=== PATIENT | male | born 1940 | race Caucasian/White ===

== ENCOUNTER → 2018-06-15 19:41 | Outpatient (REF) | payer BC, SELFPAY ==
[2018-06-15 20:33] LABS: Add Manual Diff / Slide Review NO; Basophils Absolute Auto 0 /uL (0-100); Basophils Percent Auto 0.9 % (0-2); Eosinophils Absolute Auto 100 /uL (0-450); Eosinophils Percent Auto 2.8 % (2-4); Hematocrit 45.7 % (41-53); Hemoglobin 15.3 g/dL (13.5-17.5); Lymphocytes Absolute Auto 1500 /uL (1100-4500); Mean Corpuscular HGB Conc 33.6 % (30-36); Mean Corpuscular Hemoglobin 29.8 PG (26-34); Mean Corpuscular Volume 88.6 fL (80-100); Monocytes Absolute Auto 400 /uL (0-900); Monocytes Percent Auto 8.5 % (3-14); Neutrophils Absolute Auto 2500 /uL (1500-7000); Neutrophils Percent Auto 55.8 % (50-75); Platelet Count 182 X10^3/uL (150-400); Red Blood Cell Count 5.15 X10^6/uL (4.5-5.9); Red Cell Distribution Width 12.9 % (11.6-14.8); White Blood Cell Count 4.6 X10^3/uL (4.5-11.0)
[2018-06-15 22:07] LABS: Alanine Aminotransferase 34 IU/L (21-72); Albumin Globulin Ratio 1.6 (1.0-2.8); Alkaline Phosphatase 69 U/L (38-126); Aspartate Aminotransferase 23 IU/L (17-59); Bilirubin Total 1.1 mg/dL (0.2-1.3); Blood Urea Nitrogen 18 mg/dL (9-20); Calcium 9.5 mg/dL (8.4-10.2); Carbon Dioxide 27 mmol/L (22-32); Chloride 104 mmol/L (98-107); Cholesterol 136 mg/dL (140-199); Estimated Glomerular Filt Rate 58.9 mL/min (>60); Globulin 2.5 g/dL (1.7-4.1); Glucose 95 mg/dL (80-110); HDL Cholesterol 45 mg/dL (40-60); HEMOLYSIS < 15 (0-50); LDL Cholesterol Calculated 72 mg/dL (<100); Potassium 4.5 mmol/L (3.4-5.1); Sodium 141 mmol/L (137-145); Total Protein 6.5 g/dL (6.3-8.2); Triglycerides 97 mg/dL (35-150)
[2018-06-15 22:35] LABS: Prostate Specific Antigen 1.38 ng/mL (0.10-4.00)
== END ==
LOC: LAB 19:41
PROVIDERS: Visit Provider Family Medicine Geriatric Medicine
DX: D48.5 Neoplasm of uncertain behavior of skin (principal); I10 Essential (primary) hypertension; N40.1 Benign prostatic hyperplasia with lower urinary tract symptoms; E78.5 Hyperlipidemia, unspecified
CPT/HCPCS: 36415; 80053; 80061; 84153; 85025

== ENCOUNTER 2018-11-23 12:36 | Outpatient (CLI) | payer BC, SELFPAY ==
[2018-11-23] VITALS (9 sets, daily range): BP systolic 107–137; BP diastolic 62–84; PULSE 65–76; RESP 16–64; TEMP 36; O2SAT 98–100
--- NOTE | 2018-11-23 13:30 | DI.RAD.S_ITS ---
PROCEDURE: PAIN L/S TRANSFORAMINAL INJECT INDICATIONS: SPINAL STENOSIS FINDINGS: Fluoroscopic spot filming was performed to verify placement of spinal needles at the right L4-5 level(s), as labeled on the films. Appropriate location(s) of the needle tip(s) was confirmed by injection of iodinated contrast. IMPRESSION: Successful needle tip localization for transforaminal epidural steroid injection on the right at L4-5. Dictated by: Clay Pacheco M.D. on 11/23/2018 at 15:32 Approved by: Clay Pacheco M.D. on 11/23/2018 at 15:32
[2018-11-23] MEDS: MIDAZOLAM 5 MG/5 ML VIAL IV (13:57)
[2018-11-23] MEDS: fentaNYL 100 MCG/2 ML INJ 50 MCG IV (13:58)
[2018-11-23] MEDS: BUPIVACAINE 0.25% (PF) VIAL 2 ML INJ (14:06)
[2018-11-23] MEDS: IOPAMIDOL 15 ML VIAL 3 ML INJ (14:06)
[2018-11-23] MEDS: DEXAMETHASONE 10 MG/ML VIAL 20 MG INJ (14:07)
[2018-11-23] MEDS: BETAMETHASONE 30 MG/5 ML MDV 6 MG INJ (14:07)
--- NOTE | 2018-11-23 14:09 | PC.NURSE ---
ASSISTING PT OFF TABLE AND TRANSPORTING TO POST PROC AREA IN STABLE CONDITION
--- NOTE | 2018-11-23 14:14 | P.PCN_ITS ---
Procedures Date/Time Date of procedure: 11/23/18 Time of procedure: 14:14 General Procedure description: PREOP DIAGNOSIS 1. FORMAINAL STENOSIS WITH LE SYMPTOMS POST OP DIAGNOSIS 1. FORMAINAL STENOSIS WITH LE SYMPTOMS PROCEDURES 1. FLUOROSCOPICALLY GUIDED CONTRAST CONTROLLED TRANSFORAMINAL EPIDURAL STEROID INJECTION - RIGHT L4/5 TFESI PHYSICIAN: Deangelo Epstein DO INDICATIONS: Graham is referred by Drs. Rosales and Benjamin for treatment of Foraminal Stenosis with Right LE Symptoms FINDINGS Foraminal Nerve Root Compression secondary to disc disease and facet hypertrophy DESCRIPTION OF PROCEDURE: Following review of allergy and review of potential side effects and complications, including, but not necessarily limited to, infection, allergic reaction, local tissue breakdown, stroke, temporary or permanent nerve injury, paralysis, and possible , the patient indicated that the patient understood and agreed to proceed. An informed consent document was signed by the patient, witnessed by a nurse, and placed in the patient's chart. Additionally, other treatment options including medications, modalities, and physical therapy were reviewed with the patient. After review of previous anaesthesic history and IV conscious sedation the patient was deemed safe to proceed with todays procedure with IV conscious sedation as ASA class II designation. Safety time-out was performed to confirm patient ID, procedure to be performed and site of procedure. IV sedation was accomplished with a combination of 2mg of Versed and 50mcg of Fentanyl was administered by the RN after DO order, titrated to patient comfort during the co urse of the procedure while the patient remained responsive to all verbal commands In the prone position following sterile prep and drape of the lumbar region, the Right L4/5 posterior neuroforamen was identified fluoroscopically. The skin was anesthetized via a 25-gauge 1.5-inch needle with 1% lidocaine solution. At this point, a 25-gauge 3.5-inch spinal needle was atraumatically introduced and advanced under fluoroscopic guidance through the posterior Right L4/5 neuroforamen to approximately the anterior aspect of the canal. Depth was confirmed on lateral view. Following negative aspiration, injection of approximately 1.5 cc of Isovue 200 under live fluoroscopy in the AP view confirmed excellent flow along the nerve root, into the epidural space without vascular or intrathecal uptake observed Radiological data, including multiple fluoroscopic views of the lumbosacral spine, reveal a spinal needle at the right L4/5 posterior neuroforamen. Subsequent views show flow of contrast material flowing superiorly and inferiorly along the nerve root confirming epidural flow. Subsequently, a test dose of 1.5 cc of 1% lidocaine solution was administered and patient was observed for two minutes for signs or symptoms of complications, including abdominal pain, shortness of breath, bilateral upper or lower extremity weakness, nausea and vomiting, prior to steroid injection. At this point, a total of 3cc or 20mg of dexamethasone and 6mg of betamethasone was injected without incident. The procedure tolerated the procedure well without signs or symptoms of complications prior to transfer to the recovery area continued monitoring without incident.The patient was then transferred to the recovery area where they were observed for an appropriate time after the injection. The patient reported a VAS score of 7 prior to the procedure and a post- procedure VAS of 0. Total Fluoroscopy Time: 20.9 seconds Total Conscious Sedation Time: 24min POST OP INSTRUCTIONS The patient was provided a Pain Log to continue to record their response to the target-specific procedure prior to follow-up visit with their referring physician. Additionally, specific post-injection care instructions and a contact number to our office were provided if concerns arise regarding possible complications associated with the procedure are suspected. Deangelo Epstein, Complications: none
--- NOTE | 2018-11-23 14:17 | PC.NURSE ---
Returns to recovery area stable @ [id number]
--- NOTE | 2018-11-23 14:50 | PC.NURSE ---
Patient lays on Right side post procedure for [address] schmitt requested pt do this to see if pain persisted.
== END 2018-11-23 14:57 ==
LOC: RAD 12:40
PROVIDERS: PCP Family Medicine Geriatric Medicine; Visit Provider Physical Medicine & Rehabilitation
DX: M48.061 Spinal stenosis, lumbar region without neurogenic claudication (principal); M51.16 Intervertebral disc disorders with radiculopathy, lumbar region
CPT/HCPCS: 64483; 99152; J0702; J1100; J2250; J3010

== ENCOUNTER → 2021-05-21 11:11 | Outpatient (CLI) | payer BC, SELFPAY ==
--- NOTE | 2021-05-21 11:12 | DI.MRI.S_ITS ---
PROCEDURE: MR LUMBAR SPINE WO CON INDICATIONS: LBP with Bilateral LE symptoms TECHNIQUE: Noncontrast sagittal T1 spin echo and T2 fast echo, sagittal STIR, axial T1 and T2 fast spin echo through the lumbar spine. In cases with scoliosis, additional coronal T2 fast spin echo may be performed. COMPARISON: [facility], RG, MRI L-SPINE W/O CONTRAST, 09/18/2018, 12:29. FINDINGS: Image quality: Excellent. Alignment and Curvature: There is normal bony alignment. Bone Marrow: Marrow is of normal overall signal. Schmorl's nodes are noted along the inferior endplates of L3 and L4 .No acute vertebral body compression fractures. Spinal Cord: Conus medullaris terminates at the L1 level. Visualized cord demonstrates normal signal and size. Paraspinous Soft Tissues: No paravertebral masses. Discs: Severe desiccation is present at L4-5, L5-S1, mild to moderate throughout the remainder of the lumbar spine. L1-L2: Mild disc bulge mild disc bulge with small left posterior paracentral protrusion. There is indentation of the anterior thecal sac without spinal stenosis. There is mild narrowing through the left subarticular recess with facet arthropathy. Mild bilateral foraminal narrowing. No interval change. L2-L3: Mild disc bulge with jphf-gw-ijwfcvki spinal stenosis, slightly progressive. Lelf-dr-gdektbqu right and mild left foraminal narrowing slightly progressive on the right. Facet and ligamentum flavum hypertrophy are present. L3-L4: Mild disc bulge with mild spinal stenosis. Pmvi-vq-hqdtnujz bilateral foraminal narrowing, left greater than right, unchanged. Facet and ligamentum flavum hypertrophy are present. Minimal epidural lipomatosis. L4-L5: Mild disc bulge with trace posterior left paracentral protrusion, unchanged. No spinal stenosis. Znll-wu-vavjruxp bilateral foraminal narrowing with moderate bilateral subarticular recess stenosis, unchanged. Facet hypertrophy is present. L5-S1: Mild disc bulge with superimposed posterior central protrusion. Mild indentation of the anterior thecal sac. Mild bilateral foraminal narrowing with subarticular stenosis. No interval change. IMPRESSION: Multilevel degenerative changes, relatively stable compared to prior exam except noting small areas of interval progression at L2-3. Multilevel foraminal narrowing most severe at L2-3 and L3-4 secondary to facet arthropathy. Dictated by: Farnaz Isaac M.D. on 05/21/2021 at 18:38 Approved by: Farnaz Isaac M.D. on 05/21/2021 at 18:45
== END ==
PROVIDERS: PCP Family Medicine; Referring Provider Physical Medicine & Rehabilitation; Visit Provider Physical Medicine & Rehabilitation
DX: M51.26 Other intervertebral disc displacement, lumbar region (principal); M48.062 Spinal stenosis, lumbar region with neurogenic claudication; M47.816 Spondylosis without myelopathy or radiculopathy, lumbar region
CPT/HCPCS: 72148

== ENCOUNTER 2021-08-01 12:38 | Outpatient (CLI) | payer BC, SELFPAY ==
[2021-08-01] VITALS (9 sets, daily range): BP systolic 127–150; BP diastolic 72–79; PULSE 67–73; RESP 13–18; TEMP 36.3; O2SAT 99–100
--- NOTE | 2021-08-01 13:00 | DI.RAD.S_ITS ---
PROCEDURE: PAIN L/S TRANSFORAMINAL INJECT INDICATIONS: spondylosis COMPARISON: [facility], , PAIN L/S TRANSFORAMINAL INJECT, 11/23/2018, 13:36. FINDINGS: Fluoroscopic spot filming was performed to verify placement of spinal needles on the left at the L2-L3 and L4-L5 levels, as labeled on the films. Appropriate location of the needle tips was confirmed by injection of iodinated contrast. IMPRESSION: Intraprocedural examination demonstrating appropriate positions of the needles. Dictated by: Mehdi Arzate M.D. on 08/01/2021 at 13:59 Approved by: Mehdi Arzate M.D. on 08/01/2021 at 13:59
[2021-08-01] MEDS: MIDAZOLAM 2 MG/2 ML VIAL (13:23)
[2021-08-01] MEDS: DEXAMETHASONE 10 MG/ML VIAL 20 MG INJ (13:28)
[2021-08-01] MEDS: IOPAMIDOL 15 ML VIAL 3 ML INJ (13:28)
[2021-08-01] MEDS: BETAMETHASONE 30 MG/5 ML MDV 12 MG INJ (13:28)
[2021-08-01] MEDS: BUPIVACAINE 0.25% (PF) VIAL 2 ML INJ (13:28)
--- NOTE | 2021-08-01 13:48 | PM.PROC.IR.1 ---
Date/Time/Diagnoses Date of procedure: 08/01/21 Time of procedure: 13:48 Pre-procedure diagnosis: 1. FORAMINAL STENOSIS WITH LE SYMPTOMS Post-procedure diagnosis: same Procedure Notes Procedure: 1. FLUOROSCOPICALLY GUIDED CONTRAST CONTROLLED TRANSFORAMINAL EPIDURAL STEROID INJECTION - LEFT L4/5 Indications: Graham is referred by Dr. Poe for treatment of Foraminal Stenosis with Left LE Symptoms Physician: Deangelo Epstein Total Fluoroscopy time (seconds): 39 Total sedation minutes: 22 Complications: none Procedure in detail & Post-procedure care: FINDINGS Foraminal Nerve Root Compression secondary to disc disease and facet hypertrophy DESCRIPTION OF PROCEDURE Following review of allergy and review of potential side effects and complications, including, but not necessarily limited to, infection, allergic reaction, local tissue breakdown, stroke, temporary or permanent nerve injury, paralysis, and possible , the patient indicated that the patient understood and agreed to proceed. An informed consent document was signed by the patient, witnessed by a nurse, and placed in the patient's chart. Additionally, other treatment options including medications, modalities, and physical therapy were reviewed with the patient. After review of previous anaesthesic history and IV conscious sedation the patient was deemed safe to proceed with today?s procedure with IV conscious sedation as ASA class II designation. Safety time-out was performed to confirm patient ID, procedure to be performed and site of procedure. IV sedation was accomplished with a combination of 2mg of Versed administered by the RN after DO order, titrated to patient comfort during the course of the procedure while the patient remained responsive to all verbal commands In the prone position following sterile prep and drape of the lumbar region, the left L4/5 posterior neuroforamen was identified fluoroscopically. The skin was anesthetized via a 25-gauge 1.5-inch needle with 1% lidocaine solution. At this point, a 25-gauge 3.5-inch spinal needle was atraumatically introduced and advanced under fluoroscopic guidance through the posterior left L4/5 neuroforamen to approximately the anterior aspect of the canal. Depth was confirmed on lateral view. Following negative aspiration, injection of approximately 1.5 cc of Isovue 200 under live fluoroscopy in the AP view confirmed excellent flow along the nerve root, into the epidural space without vascular or intrathecal uptake observed Radiological data, including multiple fluoroscopic views of the lumbosacral spine, reveal a spinal needle at the left L4/5 posterior neuroforamen. Subsequent views show flow of contrast material flowing superiorly and inferiorly along the nerve root confirming epidural flow. Subsequently, a test dose of 1.5 cc of 1% lidocaine solution was administered and patient was observed for two minutes for signs or symptoms of complications, including abdominal pain, shortness of breath, bilateral upper or lower extremity weakness, nausea and vomiting, prior to steroid injection. At this point, a total of 3cc or 20mg of dexamethasone and 6mg of betamethasone was injected without incident. The procedure tolerated the procedure well without signs or symptoms of complications prior to transfer to the recovery area continued monitoring without incident. The patient was then transferred to the recovery area where they were observed for an appropriate time after the injection. The patient reported a VAS score of 7 prior to the procedure and a post-procedure VAS of 0. POST OP INSTRUCTIONS The patient was provided a Pain Log to continue to record their response to the target-specific procedure prior to follow-up visit with their referring physician. Additionally, specific post-injection care instructions and a contact number to our office were provided if concerns arise regarding possible complications associated with the procedure are suspected.
--- NOTE | 2021-08-01 13:49 | PM.PROC.IR.1 ---
Date/Time/Diagnoses Date of procedure: 08/01/21 Time of procedure: 13:49 Pre-procedure diagnosis: 1. FORAMINAL STENOSIS WITH LE SYMPTOMS Post-procedure diagnosis: same Procedure Notes Procedure: 1. FLUOROSCOPICALLY GUIDED CONTRAST CONTROLLED TRANSFORAMINAL EPIDURAL STEROID INJECTION - LEFT L2/3 TFESI Indications: Graham is referred by Dr. Poe for treatment of Foraminal Stenosis with left LE Symptoms Physician: Deangelo Epstein Total Fluoroscopy time (seconds): 39 Total sedation minutes: 22 Complications: none Procedure in detail & Post-procedure care: FINDINGS Foraminal Nerve Root Compression secondary to disc disease and facet hypertrophy DESCRIPTION OF PROCEDURE Following review of allergy and review of potential side effects and complications, including, but not necessarily limited to, infection, allergic reaction, local tissue breakdown, stroke, temporary or permanent nerve injury, paralysis, and possible , the patient indicated that the patient understood and agreed to proceed. An informed consent document was signed by the patient, witnessed by a nurse, and placed in the patient's chart. Additionally, other treatment options including medications, modalities, and physical therapy were reviewed with the patient. After review of previous anaesthesic history and IV conscious sedation the patient was deemed safe to proceed with today?s procedure with IV conscious sedation as ASA class II designation. Safety time-out was performed to confirm patient ID, procedure to be performed and site of procedure. IV sedation was accomplished with a combination of 2mg of Versed was administered by the RN after DO order, titrated to patient comfort during the course of the procedure while the patient remained responsive to all verbal commands In the prone position following sterile prep and drape of the lumbar region, the left L2/3 posterior neuroforamen was identified fluoroscopically. The skin was anesthetized via a 25-gauge 1.5-inch needle with 1% lidocaine solution. At this point, a 25-gauge 3.5-inch spinal needle was atraumatically introduced and advanced under fluoroscopic guidance through the posterior left L2/3 neuroforamen to approximately the anterior aspect of the canal. Depth was confirmed on lateral view. Following negative aspiration, injection of approximately 1.5 cc of Isovue 200 under live fluoroscopy in the AP view confirmed excellent flow along the nerve root, into the epidural space without vascular or intrathecal uptake observed Radiological data, including multiple fluoroscopic views of the lumbosacral spine, reveal a spinal needle at the left L2/3 posterior neuroforamen. Subsequent views show flow of contrast material flowing superiorly and inferiorly along the nerve root confirming epidural flow. Subsequently, a test dose of 1.5cc of 1% lidocaine solution was administered and patient was observed for two minutes for signs or symptoms of complications, including abdominal pain, shortness of breath, bilateral upper or lower extremity weakness, nausea and vomiting, prior to steroid injection. At this point, a total of 3cc or 20mg of dexamethasone and 6mg betamethasone was injected without incident. The patient tolerated the procedure well without signs or symptoms of complications prior to transfer to the recovery area continued monitoring without incident. The patient was then transferred to the recovery area where they were observed for an appropriate time after the injection. The patient reported a VAS score of 7 prior to the procedure and a post-procedure VAS of 0. POST OP INSTRUCTIONS The patient was provided a Pain Log to continue to record their response to the target-specific procedure prior to follow-up visit with their referring physician. Additionally, specific post-injection care instructions and a contact number to our office were provided if concerns arise regarding possible complications associated with the procedure are suspected.
== END 2021-08-01 14:04 | disposition home or self-care (01) ==
LOC: RAD 12:39
PROVIDERS: PCP Family Medicine; Referring Provider Physical Medicine & Rehabilitation; Visit Provider Physical Medicine & Rehabilitation
DX: M48.061 Spinal stenosis, lumbar region without neurogenic claudication (principal); M51.16 Intervertebral disc disorders with radiculopathy, lumbar region
CPT/HCPCS: 64483; 64484; 99152; J0702; J1100; J2250

== ENCOUNTER → 2022-01-28 12:55 | Outpatient (CLI) | payer BC, SELFPAY ==
--- NOTE | 2022-01-28 12:58 | DI.RAD.S_ITS ---
PROCEDURE: XR HIP W PEL IF DONE NIKKI MIN 4V INDICATIONS: RIGHT HIP PAIN TECHNIQUE: AP pelvis with lateral view(s) of the bilateral hip(s). COMPARISON: None. 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 There is joint space narrowing with subchondral sclerosis and marginal osteophytosis. 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 Dictated by: Darryl Patterson M.D. on 01/28/2022 at 14:23 Approved by: Darryl Patterson M.D. on 01/28/2022 at 14:25
== END ==
PROVIDERS: PCP Family Medicine; Referring Provider Physical Medicine & Rehabilitation; Visit Provider Physical Medicine & Rehabilitation
DX: M70.61 Trochanteric bursitis, right hip (principal); M16.0 Bilateral primary osteoarthritis of hip; M25.852 Other specified joint disorders, left hip; M25.851 Other specified joint disorders, right hip
CPT/HCPCS: 73522

== ENCOUNTER → 2022-09-03 12:50 | Outpatient (CLI) | payer BC, SELFPAY ==
--- NOTE | 2022-09-03 | DI.RAD.S_ITS ---
PROCEDURE: XR CHEST 1V INDICATIONS: POST THORA FROM ULTRASOUND TECHNIQUE: One view of the chest was acquired. COMPARISON: None. FINDINGS: Surgical changes and devices: Post median sternotomy. Left atrial appendage clip. Lungs and pleura: No consolidation. No significant right-sided pleural effusion. No right pneumothorax post thoracentesis. Small left pleural effusion. Mediastinum: Mediastinal contours appear normal. Heart size is normal. Bones and chest wall: No suspicious bony lesions. Overlying soft tissues appear unremarkable. IMPRESSION: No pneumothorax post right therapeutic thoracentesis. No significant residual right pleural effusion. Small left pleural effusion. Dictated by: Dylan Cleary M.D. on 09/03/2022 at 15:39 Approved by: Dylan Cleary M.D. on 09/03/2022 at 15:42
--- NOTE | 2022-09-03 | DI.US.S_ITS ---
PROCEDURE: US THORACENTESIS INDICATIONS: S/P CABG / Pleural effusion TECHNIQUE: The indications, alternatives, benefits, risks, and complications of the procedure were explained to the patient. Written informed consent was obtained and placed in the chart. The chest was examined sonographically, and an appropriate site was chosen for thoracentesis. The skin was prepared and draped in the usual sterile fashion, and 1% lidocaine was infiltrated from the skin down through the pleural surface. A 19-gauge catheter-covered needle was then introduced into the pleural space, the catheter was advanced and the needle was withdrawn, and thereafter pleural fluid was aspirated. The catheter was then removed and a dressing was applied. COMPARISON: [facility], CR, XR CHEST 1V, 09/03/2022, 15:21. FINDINGS: Access site: Right hemithorax. Needle: One-Step centesis catheter with introducer needle. Fluid volume and description: 2400 cc. Clear straw-colored. Fluid sent for diagnostic testing: None. Medications: 1% lidocaine for local anaesthesia. Complications: None. No pneumothorax seen on subsequent CXR. IMPRESSION: Successful ultrasound-guided right therapeutic thoracentesis. 2.4 L removed. Dictated by: Dylan Cleary M.D. on 09/03/2022 at 15:42 Approved by: Dylan Cleary M.D. on 09/03/2022 at 15:44
[2022-09-03 13:14] LABS: Hemoglobin 12.9 g/dL (13.5-17.5); Mean Corpuscular HGB Conc 33.2 % (30-36); Mean Corpuscular Hemoglobin 25.5 PG (26-34); Mean Corpuscular Volume 76.9 fL (80-100); Platelet Count 156 X10^3/uL (150-400); Red Blood Cell Count 5.07 X10^6/uL (4.5-5.9); Red Cell Distribution Width 18.6 % (11.6-14.8); White Blood Cell Count 5.1 X10^3/uL (4.5-11.0)
[2022-09-03 13:25] LABS: INR 1.2 (0.9-1.3); Prothrombin Time 13.9 SECONDS (10.1-12.7)
== END ==
PROVIDERS: PCP Family Medicine; Referring Provider Nurse Practitioner; Visit Provider Nurse Practitioner
DX: J90 Pleural effusion, not elsewhere classified (principal); Z95.1 Presence of aortocoronary bypass graft
CPT/HCPCS: 32555; 36415; 71045; 85027; 85610

== ENCOUNTER 2022-10-08 12:30 | Outpatient (RCR) | payer BC, SELFPAY | END 2022-10-08 14:30 | LOC: CAR 12:30 | PROVIDERS: PCP Family Medicine; Referring Provider Thoracic Surgery (Cardiothoracic Vascular Surgery); Visit Provider Thoracic Surgery (Cardiothoracic Vascular Surgery) | DX: I21.3 ST elevation (STEMI) myocardial infarction of unspecified site (principal) | CPT/HCPCS: 93798 ==

== ENCOUNTER → 2022-11-20 15:06 | Outpatient (CLI) | payer BC, SELFPAY ==
--- NOTE | 2022-11-20 | DI.US.S_ITS ---
PROCEDURE: US THORACENTESIS INDICATIONS: PLEURAL EFFUSION TECHNIQUE: The indications, alternatives, benefits, risks, and complications of the procedure were explained to the patient. Written informed consent was obtained and placed in the chart. The chest was examined sonographically, and an appropriate site was chosen for thoracentesis. The skin was prepared and draped in the usual sterile fashion, and 1% lidocaine was infiltrated from the skin down through the pleural surface. A 19-gauge catheter-covered needle was then introduced into the pleural space, the catheter was advanced and the needle was withdrawn, and thereafter pleural fluid was aspirated. The catheter was then removed and a dressing was applied. COMPARISON: [facility], THORACENTESIS, 09/03/2022, 14:40. FINDINGS: Access site: Right hemithorax. Needle: One-Step centesis catheter with introducer needle. Fluid volume and description: 3 liter clear yellow fluid Fluid sent for diagnostic testing: Not requested Medications: 1% lidocaine for local anaesthesia. Complications: None; post-procedural chest radiograph is pending to assess for pneumothorax. IMPRESSION: Successful ultrasound-guided thoracentesis. Approved by: Ayad Bejaarno M.D. on 11/20/2022 at 16:17
--- NOTE | 2022-11-20 | DI.RAD.S_ITS ---
PROCEDURE: XR CHEST 1V INDICATIONS: POST THORACENTESIS TECHNIQUE: One view of the chest was acquired. COMPARISON: [facility], CR, XR CHEST 1V, 09/03/2022, 15:21. FINDINGS: Surgical changes and devices: Sternotomy wires and mediastinal clips. A left atrial appendage clip is noted. Lungs and pleura: Trace right and small left pleural effusions. There is a trace pneumothorax at the lateral right lung base. No new pulmonary opacity. Mediastinum: Mediastinal contours appear normal. Heart size is normal. Bones and chest wall: No suspicious bony lesions. Overlying soft tissues appear unremarkable. IMPRESSION: 1. Status post thoracentesis with trace pneumothorax at the right lung base. 2. Small left and trace right pleural effusions. Approved by: Ayad Bejarano M.D. on 11/20/2022 at 16:03
--- NOTE | 2022-11-20 16:45 | DI.RAD.S_ITS ---
PROCEDURE: XR CHEST 1V INDICATIONS: follow up thoracentesis trace pneumo per Dr. Bejarano TECHNIQUE: One view of the chest was acquired. COMPARISON: [facility], EMANUEL, XR CHEST 1V, 11/20/2022, 15:54. [facility], CR, XR CHEST 1V, 09/03/2022, 15:21. FINDINGS: Surgical changes and devices: Sternotomy wires and mediastinal clips. Left atrial appendage clip is noted. Lungs and pleura: Trace pneumothorax is again seen at the right lung base, which appears unchanged when compared to the prior exam. Stable trace right and small left pleural effusions. Mediastinum: Mediastinal contours appear normal. Heart size is normal. Bones and chest wall: No suspicious bony lesions. Overlying soft tissues appear unremarkable. IMPRESSION: Stable trace right pneumothorax. Stable bilateral pleural effusions. Approved by: Ayad Bejarano M.D. on 11/20/2022 at 17:10
== END ==
PROVIDERS: PCP Family Medicine; Referring Provider Family Medicine; Visit Provider Family Medicine
DX: J90 Pleural effusion, not elsewhere classified (principal)
CPT/HCPCS: 32555; 71045

== ENCOUNTER → 2023-09-17 09:43 | Outpatient (CLI) | payer BC, SELFPAY ==
--- NOTE | 2023-09-17 09:44 | DI.RAD.S_ITS ---
PROCEDURE: XR LUMBAR SPINE MIN 4V INDICATIONS: BILATERAL HIP PAIN TECHNIQUE: 5 views of the lumbar spine acquired, including flexion and extension views. COMPARISON: None. FINDINGS: Bones: 5 nonrib-bearing vertebrae are present. There is multilevel trace retrolisthesis. Multilevel moderate to severe disc space narrowing is present most severe at L4-5, L5-S1. Moderate to severe foraminal narrowing is also present L4-5 and L5-S1. Prominent anterior osteophytes are present from L2 through L5 most severe at L3. No vertebral body compression fractures. No suspicious bony lesions. Soft tissues: Overlying bowel gas pattern is normal. No suspicious soft tissue calcifications. Flexion/extension: There is normal range of motion, with preserved normal alignment. IMPRESSION: Multilevel disc and foraminal narrowing most severe at L5-S1. Dictated by: Farnaz Isaac M.D. on 09/17/2023 at 10:28 Approved by: Farnaz Isaac M.D. on 09/17/2023 at 10:29
--- NOTE | 2023-09-17 09:44 | DI.RAD.S_ITS ---
PROCEDURE: XR HIP W PEL IF DONE NIKKI MIN 4V INDICATIONS: BILATERAL HIP PAIN TECHNIQUE: AP pelvis with lateral view(s) of the bilateral hip(s). COMPARISON: [facility], , XR HIP W PEL IF DONE NIKKI 3TO4V, 01/28/2022, 13:11. FINDINGS: Bones: No fractures or dislocations. Pelvic ring appears intact. No suspicious bony lesions. Moderate bilateral degenerative hip joint space narrowing. Minimal periarticular osteophytes. No erosions. Soft tissues: The visualized bowel gas pattern is normal. No suspicious soft tissue calcifications. IMPRESSION: Moderate bilateral hip arthritic change. Dictated by: Farnaz Isaac M.D. on 09/17/2023 at 10:24 Approved by: Farnaz Isaac M.D. on 09/17/2023 at 10:24
== END ==
PROVIDERS: PCP Family Medicine; Referring Provider Physical Medicine & Rehabilitation; Visit Provider Physical Medicine & Rehabilitation
DX: M70.61 Trochanteric bursitis, right hip (principal); M25.551 Pain in right hip; M25.552 Pain in left hip; M48.062 Spinal stenosis, lumbar region with neurogenic claudication; M51.26 Other intervertebral disc displacement, lumbar region
CPT/HCPCS: 72110; 73522

== ENCOUNTER → 2023-09-23 12:42 | Outpatient (CLI) | payer BC, SELFPAY ==
--- NOTE | 2023-09-23 12:44 | DI.RAD.S_ITS ---
PROCEDURE: XR HAND RT 2V INDICATIONS: Right CMC arethritis post trauma TECHNIQUE: 3 views of the hand(s) acquired. COMPARISON: None. FINDINGS: Bones: No fractures or dislocations. Carpal bones are normally aligned. No suspicious bony lesions. 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 Mild degenerative arthritis at the radiocarpal joint with narrowing between the radial styloid and the scaphoid. Soft tissues: No suspicious soft tissue calcifications. 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 Mild radiocarpal joint degenerative arthritis. No acute bony abnormality. Dictated by: Lamberto Batista M.D. on 09/23/2023 at 19:41 Approved by: Lamberto Batista M.D. on 09/23/2023 at 19:43
== END ==
PROVIDERS: PCP Family Medicine; Referring Provider Physical Medicine & Rehabilitation; Visit Provider Physical Medicine & Rehabilitation
DX: M18.11 Unilateral primary osteoarthritis of first carpometacarpal joint, right hand (principal); M19.031 Primary osteoarthritis, right wrist
CPT/HCPCS: 73130

== ENCOUNTER 2024-02-25 14:28 | Outpatient (CLI) | payer BC, SELFPAY ==
[2024-02-25] VITALS (8 sets, daily range): BP systolic 136–172; BP diastolic 64–95; PULSE 72–96; RESP 14–20; TEMP 36.9; O2SAT 96–100
--- NOTE | 2024-02-25 14:29 | DI.RAD.S_ITS ---
PROCEDURE: PAIN L/S TRANSFORAM INJECT NIKKI COMPARISON: None. INDICATIONS: SPONDYLOSIS FINDINGS: Multiple fluoroscopic images demonstrate performance of bilateral transforaminal epidural steroid injection L2-L3. Images demonstrate needle placement and contrast injection. IMPRESSION: Imaging guidance provided for bilateral transforaminal epidural steroid injection performed by the referring provider. Dictated by: Lamberto Batista M.D. on 02/26/2024 at 10:19 Approved by: Lamberto Batista M.D. on 02/26/2024 at 10:21
[2024-02-25] MEDS: MIDAZOLAM 2 MG/2 ML VIAL IV (16:17)
[2024-02-25] MEDS: iopamidoL 15 ML VIAL 3 ML INJ (16:20)
[2024-02-25] MEDS: DEXAMETHASONE 10 MG/ML VIAL 20 MG INJ (16:20)
[2024-02-25] MEDS: BUPIVACAINE 0.25% (PF) VIAL 2 ML INJ (16:20)
[2024-02-25] MEDS: BETAMETHASONE 30 MG/5 ML MDV 12 MG INJ (16:20)
--- NOTE | 2024-02-25 16:45 | P.PCN_ITS ---
Date/Time/Diagnoses Date of procedure: 02/25/24 Time of procedure: 16:45 Pre-procedure diagnosis: 1. FORAMINAL STENOSIS WITH LE SYMPTOMS Post-procedure diagnosis: same Procedure Notes Procedure: 1. FLUOROSCOPICALLY GUIDED CONTRAST CONTROLLED TRANSFORAMINAL EPIDURAL STEROID INJECTION - BILATERAL L2/3 TFESI Indications: Graham is referred by Dr. Poe for treatment of Foraminal Stenosis with bilateral LE Symptoms Physician: Deangelo Epstein Total Fluoroscopy time (seconds): 20 Total sedation minutes: 17 Complications: none Procedure in detail & Post-procedure care: FINDINGS Foraminal Nerve Root Compression secondary to disc disease and facet hypertrophy DESCRIPTION OF PROCEDURE Following review of allergy and review of potential side effects and complications, including, but not necessarily limited to, infection, allergic reaction, local tissue breakdown, stroke, temporary or permanent nerve injury, paralysis, and possible , the patient indicated that the patient understood and agreed to proceed. An informed consent document was signed by the patient, witnessed by a nurse, and placed in the patient's chart. Additionally, other treatment options including medications, modalities, and physical therapy were reviewed with the patient. After review of previous anaesthesic history and IV conscious sedation the patient was deemed safe to proceed with today?s procedure with IV conscious sedation as ASA class II designation. Safety time-out was performed to confirm patient ID, procedure to be performed and site of procedure. IV sedation was accomplished with a combination of 2mg of Versed was administered by the RN after DO order, titrated to patient comfort during the course of the procedure while the patient remained responsive to all verbal commands In the prone position following sterile prep and drape of the lumbar region, the right L2/3 posterior neuroforamen was identified fluoroscopically. The skin was anesthetized via a 25-gauge 1.5-inch needle with 1% lidocaine solution. At this point, a 25-gauge 3.5-inch spinal needle was atraumatically introduced and advanced under fluoroscopic guidance through the posterior right 2/3 neuroforamen to approximately the anterior aspect of the canal. Depth was confirmed on lateral view. Following negative aspiration, injection of approximately 1.5cc of Isovue 200 under live fluoroscopy in the AP view confirmed excellent flow along the nerve root, into the epidural space without vascular or intrathecal uptake observed Radiological data, including multiple fluoroscopic views of the lumbosacral spine, reveal a spinal needle at the right L2/3 posterior neuroforamen. Subsequent views show flow of contrast material flowing superiorly and inferiorly along the nerve root confirming epidural flow. Subsequently, a test dose of 1.5cc of 1% lidocaine solution was administered and patient was observed for two minutes for signs or symptoms of complications, including abdominal pain, shortness of breath, bilateral upper or lower ex tremity weakness, nausea and vomiting, prior to steroid injection. At this point, a total of 2cc or 10mg of dexamethasone and 6mg betamethasone was injected without incident. Attention was then refocused to the left L2/3 level where the identical procedure was replicated. The procedure tolerated the procedure well without signs or symptoms of complications prior to transfer to the recovery area continued monitoring without incident. The patient was then transferred to the recovery area where they were observed for an appropriate time after the injection. The patient reported a VAS score o f 7 prior to the procedure and a post-procedure VAS of 0. POST OP INSTRUCTIONS The patient was provided a Pain Log to continue to record their response to the target-specific procedure prior to follow-up visit with their referring physician. Additionally, specific post-injection care instructions and a contact number to our office were provided if concerns arise regarding possible complications associated with the procedure are suspected.
== END 2024-02-25 16:55 | disposition home or self-care (01) ==
PROVIDERS: PCP Family Medicine; Referring Provider Physical Medicine & Rehabilitation; Visit Provider Physical Medicine & Rehabilitation
DX: M48.061 Spinal stenosis, lumbar region without neurogenic claudication (principal); M51.16 Intervertebral disc disorders with radiculopathy, lumbar region; M47.26 Other spondylosis with radiculopathy, lumbar region
CPT/HCPCS: 64483; 99152; J0702; J1100; J2250; J3490